=== PATIENT | female | born 1985 | race Caucasian/White ===

== ENCOUNTER 2017-09-06 09:42 | Emergency (ER) | payer MEDICAID, OTHER ==
[~2017-09-06] VITALS: Ht 162.6 cm; Wt 76.7 kg
[2017-09-06 10:01] VITALS: BP 116/78
[2017-09-06 10:10] LABS: Urine WBC None Seen /hpf (0 - 5)
[2017-09-06 10:29] LABS: Urine Bacteria NONE SEEN /hpf (None Seen); Urine Blood TRACE /uL (Negative); Urine Mucus FEW (None Seen); Urine Specific Gravity 1.009 (1.001-1.035)
== END 2017-09-06 11:00 | disposition home or self-care (01) ==
LOC: ER 09:50
DX: N92.1 Excessive and frequent menstruation with irregular cycle (principal); J45.909 Unspecified asthma, uncomplicated; E07.9 Disorder of thyroid, unspecified
CPT/HCPCS: 81001